=== PATIENT | female | born 1985 | race Caucasian/White ===

== ENCOUNTER 2017-08-30 15:40 | Emergency (ER) | payer MEDICAID, OTHER ==
[2017-08-30 16:09] VITALS: BP 113/79; PULSE 65; RESP 15; TEMP 97.7; O2SAT 100
[2017-08-30 17:52] VITALS: BMI 34.1
== END 2017-08-30 16:50 | disposition left against medical advice (07) ==
LOC: C.ER 15:40
DX: Z02.89 Encounter for other administrative examinations (principal); R10.32 Left lower quadrant pain